=== PATIENT | female | born 1955 | race African-American/Black ===

== ENCOUNTER 2020-09-08 08:57 | Inpatient (IN) | payer OTHER ==
[2020-09-08] MEDS ORDERED: Ondansetron ODT 4 MG TAB ONE ×2 (09:14→17:08)
--- NOTE | 2020-09-08 09:38 | RAD ---
Chest one view HISTORY: Chest pain. Nausea vomiting. COMPARISON: 02/28/2018. FINDINGS: Cardiac silhouette is magnified by projection. Pulmonary vasculature are unremarkable. Mediastinum is midline with aortic calcification. Slight elevation right hemidiaphragm unchanged in appearance. No lobar consolidation or evidence of p neumothorax. IMPRESSION : No acute abnormalities are demonstrated.
[2020-09-08 09:53] LABS: #Lymphocytes 1.2 thou/uL (1.20-3.40); #Monocytes 0.4 thou/uL (0.11-0.59); #Neutrophils 8.9 thou/uL (1.40-6.50); %Basophils 0.5 % (0.0-1.0); %Eosinophils 0.3 % (0.0-10.0); %Lymphocytes 11.4 % (21.0-51.0); %Monocytes 3.6 % (0.0-10.0); %Neutrophils 84.3 % (42.0-75.0); Mean Corpuscular HGB CONC 32.2 g/dL (32.0-36.0); Mean Corpuscular Hemoglobin 30.7 pg (27.0-31.0); Mean Corpuscular Volume 95.4 fL (78.0-98.0); Mean Platelet Volume 7.4 fL (7.4-10.4); Platelet Count 415 thou/uL (130-400); RBC Distribution Width 11.9 % (11.5-14.5); Red Blood Cell (RBC) Count 4.56 mill/uL (4.20-5.40); White Blood Cell (WBC) Count 10.5 thou/uL (4.8-10.8)
[2020-09-08 10:16] LABS: ALT (SGPT) 17 U/L (8-55); AST (SGOT) 18 U/L (5-34); Alkaline Phosphatase 116 U/L (40-110); Anion Gap 16 mmol/L (10-20); BUN (Urea Nitrogen) 10 mg/dL (9.8-20.1); Bilirubin, Total 0.4 mg/dL (0.2-1.2); Calc. Creatinine Clearance 0 mL/min (70-130); Calcium 9.2 mg/dL (7.8-10.44); Carbon Dioxide 25 mmol/L (23-31); Chloride 99 mmol/L (98-107); Globulin 3.4 g/dL (2.4-3.5); Glucose 137 mg/dL (80-115); Lipase 16 U/L (8-78); Magnesium 1.8 mg/dL (1.6-2.6); Potassium 3.2 mmol/L (3.5-5.1); Protein, Total 7.4 g/dL (6.0-8.3); Sodium 137 mmol/L (136-145)
[2020-09-08 10:34] LABS: Bilirubin Negative (Negative); Blood, Urine Negative (Negative); Clarity Clear (Clear); Glucose, Urine (Dipstick) Normal (Negative); Ketone, Urine 10 mg/dL (Negative); Leukocyte Negative Leu/uL (Negative); Nitrite Negative (Negative); Protein, Urine (Dipstick) 30 mg/dL (Neg-Trace); RBC/HPF None Seen HPF (0-3); Specific Gravity, Urine 1.019 (1.002-1.036); Squamous Epithelial 0-3 HPF (0-3); Urobilinogen Normal mg/dL (Less than 2); pH, Urine 8.5 (5.0-9.0)
[2020-09-08 10:35] LABS: CKMB 1.5 ng/mL (0-6.6)
[2020-09-08 10:37] LABS: Bacteria/HPF 1+ HPF (None Seen)
--- NOTE | 2020-09-08 10:42 | CT ---
CT abdomen and pelvis with IV contrast HISTORY: Abdomen pain. Nausea vomiting. FINDINGS: The lung bases are clear. Very small hiatal hernia. A rounded 1.4 cm heterogeneous isodense nodule involves the lateral limb of the left adrenal gland. T here is subtle stranding in the retroperitoneal fat immediately surrounding the left adrenal gland. Minimal stranding extending inferiorly into the retroperitoneum. Nonspecific, nonenlarged retroperito huan lymph nodes. The kidneys are unremarkable. No evidence of bowel obstruction. Appendix not inflamed. Urinary bladder has normal appearance. IMPRESSION : No evidence of bowel obstruction or other enteric abnormality. Subtle abnormality of the left adrenal gland and small left adrenal nodule as detailed above. If infl ammation is a component, the patient's symptoms may be related to hormonal release. Please consider follow-up CT adrenal glands, without and with IV contrast, in approximately 3 months to evaluate for resolution and better characterization.
[2020-09-08] MEDS ORDERED: cefTRIAXone\\ROCEPHIN 2 GM VIAL ONE (11:28)
[2020-09-08] MEDS ORDERED: Aspirin Chewable 81 MG TAB ONE (11:28)
[2020-09-08] MEDS ORDERED: Potassium Chloride 20 MEQ TAB ONE (11:28)
[2020-09-08] MEDS ORDERED: Metoclopramide HCl 10 MG/2 ML VIAL ONE (11:28)
[2020-09-08] MEDS ORDERED: Iopamidol-370 76% 500 ML 1 ML ONE (11:57)
[2020-09-08 12:54] LABS: Lactic Acid 2.4 mmol/L (0.5-2.2)
[2020-09-08 16:33] LABS: Troponin I 0.281 ng/mL (< 0.028)
[2020-09-08] MEDS ORDERED: cloNIDine 0.1 MG TAB PO PRN (16:57)
[2020-09-08] MEDS ORDERED: Ondansetron ODT 4 MG TAB PO PRN (16:57)
[2020-09-08] MEDS ORDERED: Promethazine HCl 25 MG in Sodium Chloride 0.9% 50 ML IVPB PRN (16:57)
[2020-09-08] MEDS ORDERED: Acetaminophen 325 MG TAB PO PRN (16:57)
[2020-09-08] MEDS ORDERED: Ondansetron PF 4 MG/2 ML Vial IVP PRN (16:57)
[2020-09-08 17:44] LABS: SARS-CoV-2 MS2 Positive; SARS-CoV-2 N Gene Negative; SARS-CoV-2 S Gene Negative; SARS-CoV-2 by NAA Not Detected (NotDetected); SARS-CoV-2 orf1ab Negative
--- NOTE | 2020-09-08 18:35 | HP ---
PRIMARY CARE PHYSICIAN: Holly Tran PA-C. CHIEF COMPLAINT: "I suddenly felt sick and I had been vomiting since last night." HISTORY OF PRESENT ILLNESS: Ms. Buck is a very pleasant 65-year-old female, who has a history of hypertension and high cholesterol. She says she was feeling fine until about 12:30 a.m. this morning. She had gone to bed and then just suddenly got up and started feeling nauseated and started vomiting. Her daughter who is at the bedside says she has vomited at least 12 times. She denies emphatically that she has any abdominal pain. She denies any fever, but says she has had some chills. Due to the continuing vomiting, she came to the ER for evaluation. She denies any diarrhea. She denies any sick contacts, but she did eat something different from everyone else. She had eaten some beef enchiladas from a local [employer] restaurant and is not sure if that caused the symptoms. She says she had eaten there at around noon about 12 hours before the symptoms started and about 5 in the evening, she started to feel a little bit sick. She does admit to having food poisoning a couple of years ago with very similar symptoms. She denies any new medications or any change in medications. REVIEW OF SYSTEMS: All systems were reviewed and are negative except for that mentioned in the history of present illness. PAST MEDICAL HISTORY: Significant for hypertension and hypercholesterolemia. PAST SURGICAL HISTORY: She had a hysterectomy about 40 years ago. ALLERGIES: NO KNOWN DRUG ALLERGIES. SOCIAL HISTORY: She is . She has 2 children. She is a nonsmoker and nondrinker. Denies any drug use. Her daughter, Holly Buck, is the surrogate decision maker and she would want to be a full code. FAMILY HISTORY: Significant for breast cancer in the mother and prostate cancer in her father. CURRENT MEDICATIONS: Include: 1. Hydrochlorothiazide 25 mg daily. 2. Lisinopril 10 mg a day. PHYSICAL EXAMINATION: GENERAL: She is awake, alert, and oriented. However, she does appear to be in some distress from vomiting. VITAL SIGNS: Her blood pressure was ranging from 137/85 to 176/89, heart rate 102, respiratory rate is 18, temperature is 99.3, and O2 saturation is 100% on room air. HEENT: Pupils are equal, round, and reactive. Extraocular muscles are intact. Her sclerae anicteric. Throat, no erythema, no exudates. NECK: No adenopathy. No bruits. LUNGS: Clear to auscultation. There is no wheezing, no rales, no rhonchi. CARDIOVASCULAR: She has a normal S1 and S2. No S3 or S4. Heart rate is regular, but tachycardic. ABDOMEN: Soft. It is nontender. There is no rebound, no guarding. Bowel sounds are present. EXTREMITIES: There is no clubbing or cyanosis. No edema. No calf tenderness. No joint effusions. She has palpable dorsalis pedis pulses bilaterally. NEUROLOGIC: Her muscle strength is 5/5 in both her upper and lower extremities. SKIN AND INTEGUMENT: Unremarkable. LABS AND IMAGING: She had a CT scan of the abdomen and pelvis in which there was a subtle abnormality in the left adrenal gland, which could be related to a nodule. Recommending followup CT in 3 months. Otherwise, it was unremarkable and she had a chest x-ray which did not show any abnormalities. The heart size is normal. There is no infiltrate or effusion. This is by my reading. On her urine, there was 1+ bacteria and 4 to 6 white blood cells. Her chemistry, sodium is 137, potassium 3.2, chloride is 99, CO2 is 25, BUN of 10, creatinine 0.8, glucose is 137. Lactic acid is 3.0. Alkaline phosphatase is 116. Troponin is 0.035. White blood cell count is 10.5, hemoglobin 14, hematocrit is 43.5, and platelet count is 415. ASSESSMENT: 1. This is a very pleasant 65-year-old female, who presents with intractable vomiting and nausea. No abdominal pain. No significant abnormalities on CT scan. I suspect that her symptoms could be related to a gastroenteritis, either bacterial or viral. It is also noted that she has an elevated troponin. I suspect this is from the strain of all of the vomiting and possibly her blood pressure. However, she will be placed in observation. We will place her on IV fluid resuscitation, antiemetics, and we will also trend her cardiac enzymes. Should her troponin level increase, then we will get a cardiology evaluation. Otherwise, hopefully her symptoms will homer and anticipate discharge home tomorrow. 2. Hypertension. We will place her on p.r.n. medications for her blood pressure. Job ID: [id number]
[2020-09-09 05:21] LABS: #Basophils 0.1 thou/uL (0.0-0.2); #Lymphocytes 3.1 thou/uL (1.20-3.40); #Monocytes 1.6 thou/uL (0.11-0.59); #Neutrophils 12.3 thou/uL (1.40-6.50); %Basophils 0.3 % (0.0-1.0); %Eosinophils 0.1 % (0.0-10.0); %Lymphocytes 18.2 % (21.0-51.0); %Monocytes 9.3 % (0.0-10.0); Hemoglobin 13.9 g/dL (12.0-16.0); Mean Corpuscular HGB CONC 32.7 g/dL (32.0-36.0); Mean Corpuscular Hemoglobin 31.2 pg (27.0-31.0); Mean Corpuscular Volume 95.5 fL (78.0-98.0); Mean Platelet Volume 7.6 fL (7.4-10.4); Platelet Count 399 thou/uL (130-400); RBC Distribution Width 12.2 % (11.5-14.5); Red Blood Cell (RBC) Count 4.46 mill/uL (4.20-5.40); White Blood Cell (WBC) Count 17.1 thou/uL (4.8-10.8)
[2020-09-09 05:37] LABS: Anion Gap 16 mmol/L (10-20); BUN (Urea Nitrogen) 7 mg/dL (9.8-20.1); Calc. Creatinine Clearance 0 mL/min (70-130); Calcium 8.8 mg/dL (7.8-10.44); Carbon Dioxide 22 mmol/L (23-31); Chloride 102 mmol/L (98-107); Glucose 132 mg/dL (80-115); Potassium 3.3 mmol/L (3.5-5.1); Sodium 137 mmol/L (136-145)
[2020-09-09] MEDS ORDERED: Enoxaparin Sodium 40 MG/0.4 ML SYRINGE ONE (08:38)
[2020-09-09] MEDS ORDERED: Ondansetron PF 4 MG/2 ML Vial ONE (08:38)
[2020-09-09] MEDS ORDERED: Enoxaparin Sodium 40 MG/0.4 ML SYRINGE SC SCH ×2 (09:00→15:00)
[2020-09-09] MEDS ORDERED: Potassium Chloride 10 MEQ in Premix Bag 1 BAG IVPB SCH (10:00)
[2020-09-09] MEDS ORDERED: Acetaminophen 500 MG TAB ONE (11:06)
[2020-09-09] MEDS ORDERED: Sodium Chloride 0.9% 500 ML IV SCH (12:15)
[2020-09-09] MEDS ORDERED: Nitroglycerin 2% Ointment 1 INCH/1 GM Packet TOP SCH (12:15)
[2020-09-09] MEDS ORDERED: Lisinopril/Hydrochlorothiazide 20/25 mg Tablet PO SCH (12:15)
--- NOTE | 2020-09-09 12:19 | PDOC.HOSPP ---
- Subjective Encounter Date: 09/09/20 Encounter Time: 12:17 Subjective: Patient seen and examined. No new complaints. No overnight events. Patient says she feels better and wants to go home. Tolerating po liquid intake. Denies abdominal pain, N/V/D. Denies dysuria or hematuria. Denies any chest pain, heart palpitations, SOB, light headedness. Denies fever, chills. Discussed elevated troponin and WBC count. Patient had no further questions. - Objective Result Diagrams: 09/09/20 04:47 09/09/20 04:47 Hospitalist ROS - Review of Systems All other systems reviewed; all pertinent +/- noted in HPI/Subj - Medication Medications: Active Medications Generic Name Dose Route Start Last Admin Trade Name Freq PRN Reason Stop Dose Admin Enoxaparin Sodium 40 mg 09/09/20 09:00 09/09/20 08:43 Enoxaparin Sodium 40 Mg/0.4 Ml Syringe SC 40 mg 0900 GERARD Administration Ondansetron HCl 4 mg 09/08/20 16:57 09/09/20 08:43 Ondansetron Pf 4 Mg/2 Ml Vial IVP 4 mg Q6H PRN Administration Nausea/Vomiting Ondansetron HCl 4 mg 09/08/20 16:57 09/08/20 17:10 Ondansetron Odt 4 Mg Tab PO 4 mg Q6H PRN Administration Nausea/Vomiting - Exam General Appearance: NAD, awake alert. negative: ill appearing Eye: anicteric sclera ENT: normocephalic atraumatic Heart: RRR, no gallops, no rubs, normal peripheral pulses, III/IV Respiratory: CTAB, no wheezes, no rales, no ronchi, normal chest expansion, no tachypnea Gastrointestinal: soft, non-tender, non-distended, normal bowel sounds, no guarding, no rigidity Gastrointestinal - other findings: no CVAT Extremities: no edema Neurological: no focal deficits Psychiatric: normal affect, A&O x 3 Hosp A/P (1) UTI (urinary tract infection) Status: Acute (2) Sepsis Code(s): A41.9 - SEPSIS, UNSPECIFIED ORGANISM Status: Acute (3) NSTEMI (non-ST elevated myocardial infarction) Code(s): I21.4 - NON-ST ELEVATION (NSTEMI) MYOCARDIAL INFARCTION Status: Acute (4) Elevated troponin Code(s): R77.8 - OTHER SPECIFIED ABNORMALITIES OF PLASMA PROTEINS Status: Acute (5) Hypokalemia Code(s): E87.6 - HYPOKALEMIA Status: Acute (6) Intractable nausea and vomiting Code(s): R11.2 - NAUSEA WITH VOMITING, UNSPECIFIED Status: Acute (7) Adrenal nodule Code(s): E27.8 - OTHER SPECIFIED DISORDERS OF ADRENAL GLAND Status: Acute (8) Hypertension Code(s): I10 - ESSENTIAL (PRIMARY) HYPERTENSION Status: Chronic (9) Hyperlipidemia Code(s): E78.5 - HYPERLIPIDEMIA, UNSPECIFIED Status: Chronic - Plan 65/F with PMH HTN/HLD presents for intractable nausea and vomiting. Admit to telemetry floor, observation status. Expected length of stay less than 2 midnights. Changed to inpatient status 09/09/20 #UTI UA 4-6 WBC, 1+ bacteria. Urine culture pending. Continue Rocephin. #Sepsis Likely related to problem 1. Patient originally presented tachycardic. Today she is tachycardic, WBCs 17.1, LA 2.4 We will give 500 ml normal saline bolus. Continue Rocephin. Recheck lactic acid in 4 hours. Check procalcitonin. #NSTEMI, Elevated troponin 0.035, 0.090, 0.281 Patient denies symptomatology. A: 3/6 murmur Heart score 5 Repeat stat EKG and troponin level. Order echocardiogram. Continue aspirin. Add statin and Nitropaste. Consider cardiology consult pending results above. Troponin 0.312, asymptomatic, no EKG changes NSTEMI, LMWH 1mg/kg, consult cardiology. #Hypokalemia Mild. K3.3, mag 1.8 Currently receiving 40 mEq IVPB Recheck level in a.m. #Intractable nausea and vomiting Resolved. Tolerating p.o. liquid intake. Continue advance diet. #Adrenal nodule Incidental finding on CT abdomen pelvis. Recommend follow-up noncontrast CT of adrenal glands if symptomatology could be linked to incidental finding. #Hypertension Currently hypertensive. Has not received home medications. We will restart home dose lisinopril HCTZ. We will add Nitropaste related to problem #3. #Hyperlipidemia Restart home dose atorvastatin. Check FLP. Lovenox for DVT prophylaxis. No GI prophylaxis. Discussed case with Dr. Quintana, attending physician.
[2020-09-09] MEDS ORDERED: Nitroglycerin 2% Ointment 1 INCH/1 GM Packet ONE (13:05)
[2020-09-09 13:10] LABS: Troponin I 0.312 ng/mL (< 0.028)
[2020-09-09 15:44] VITALS: BMI 26.1
--- NOTE | 2020-09-09 19:36 | CON ---
DATE OF CONSULTATION: REASON FOR CONSULTATION: Elevated troponin. PRIMARY RETAIL OFFICE MANAGER: None. HISTORY OF PRESENT ILLNESS: Ms. Buck is a 65-year-old woman, who has not been seen or evaluated by Cardiology in the past. She recently presented with overt nausea and vomiting. She states she ate [place] food recently and developed significant nausea and vomiting several hours afterward. She had persistent nausea and vomiting. No chest pain or pressure noted. She states after being hydrated and given the Zofran, her symptoms completely resolved. She appears to be comfortable without any issues or problems currently. Her EKG shows normal sinus rhythm with no significant ST-T wave changes suggesting ischemia or infarction. PAST MEDICAL HISTORY: Hypertension, hyperlipidemia, and hysterectomy. ALLERGIES: NONE. SOCIAL HISTORY: She is currently . Two children. No current tobacco or alcohol use. FAMILY HISTORY: Positive for breast cancer. HOME MEDICATIONS: Include hydrochlorothiazide and lisinopril. REVIEW OF SYSTEMS: A 10-point review of systems is reviewed and is as above, otherwise negative. PHYSICAL EXAMINATION: GENERAL: Patient is a pleasant woman, who is in no acute distress. The patient appears their stated age. VITAL SIGNS: Blood pressure 136/72, pulse 82, temperature 99. NEUROLOGIC: The patient is alert and oriented x3 with no focal neurologic deficits. HEENT: Sclerae without icterus. Mouth has moist mucous membranes with normal pallor. NECK: No JVD. Carotid upstroke brisk. No bruits bilaterally. LUNGS: Clear to auscultation with unlabored respirations. BACK: No scoliosis or kyphosis. CARDIAC: Regular rate and rhythm with normal S1 and S2. No S3 or S4 noted. No significant rubs, murmurs, thrills, or gallops noted throughout the precordium. PMI is not displaced. There is no parasternal heave. ABDOMEN: Soft, nontender, nondistended. No peritoneal signs present. No hepatosplenomegaly. No abnormal striae. EXTREMITIES: 2+ femoral and 2+ dorsalis pedis pulses. No cyanosis, clubbing, or edema. SKIN: No gross abnormalities. PERTINENT LABORATORY DATA: Hemoglobin 13.9, hematocrit 42.6, and platelet count 399. Creatinine 0.74. Peak troponin 0.3 with a CK-MB of 1.5. EKG as above. IMPRESSION: 1. Elevated troponin. 2. Persistent nausea and vomiting. 3. Hypertension. 4. Hyperlipidemia. RECOMMENDATIONS: Ms. Buck's current elevated troponin does not represent unstable angina. She had persistent nausea and vomiting for several hours. This is truly consistent with unstable angina. I would expect a much higher troponin. She does have risk factor for underlying coronary artery disease. Recommend a noninvasive stress study to assess for any areas of ischemia. Her LVEF is estimated at 60% to 65% with no significant wall motion abnormalities present. She has mild LVH. Job ID: [id number]
[2020-09-09] MEDS: Enoxaparin Sodium 80 MG/0.8 ML SYRINGE SC SCH (20:38)
[2020-09-09] MEDS: Nitroglycerin 2% Ointment 1 INCH/1 GM Packet TOP SCH ×2 (20:40→20:53)
[2020-09-10 04:43] LABS: #Basophils 0.1 thou/uL (0.0-0.2); #Eosinphils 0.1 thou/uL (0.0-0.7); #Lymphocytes 4.5 thou/uL (1.20-3.40); #Neutrophils 4.9 thou/uL (1.40-6.50); %Basophils 1.3 % (0.0-1.0); %Monocytes 9.6 % (0.0-10.0); Hemoglobin 14.1 g/dL (12.0-16.0); Mean Corpuscular Hemoglobin 31.7 pg (27.0-31.0); Mean Corpuscular Volume 95.8 fL (78.0-98.0); Mean Platelet Volume 7.4 fL (7.4-10.4); Platelet Count 370 thou/uL (130-400); Red Blood Cell (RBC) Count 4.45 mill/uL (4.20-5.40); White Blood Cell (WBC) Count 10.7 thou/uL (4.8-10.8)
[2020-09-10 05:02] LABS: Anion Gap 15 mmol/L (10-20); BUN (Urea Nitrogen) 7 mg/dL (9.8-20.1); Calc. Creatinine Clearance 89 mL/min (70-130); Calcium 8.8 mg/dL (7.8-10.44); Carbon Dioxide 25 mmol/L (23-31); Cardiac Risk 5.6 (Less than 4.5); Chloride 103 mmol/L (98-107); Cholesterol 140 mg/dl (< 200 Desired); Glucose 92 mg/dL (80-115); HDL Cholesterol 25 mg/dL (>60 Neg Risk); LDL Cholesterol, Calculated 93 mg/dL; Potassium 3.6 mmol/L (3.5-5.1); Sodium 139 mmol/L (136-145); Triglycerides 112 mg/dL (Less than 150)
[2020-09-10] MEDS: Enoxaparin Sodium 80 MG/0.8 ML SYRINGE SC SCH (07:59)
[2020-09-10] MEDS ORDERED: Lisinopril/Hydrochlorothiazide 20/25 mg Tablet PO SCH (09:00)
--- NOTE | 2020-09-10 11:42 | NM ---
Radionucleotide stress and rest myocardial perfusion scan with CT attenuation correction and SPECT im aging Left ventricular wall motion evaluation and ejection fraction HISTORY: Chest pain. FINDINGS: Heterogeneous uptake of radiotracer throughout the left ventricular myocardium. Some breast attenuation noted. No perfusion defect or reversibility. QGS analysis of gated SPECT images shows no focal wall motion abnormalities. Ejection fraction calcul ated at 81%. IMPRESSION : No evidence of ischemia. Normal LVEF.
[2020-09-10] MEDS ORDERED: ADENOSINE 60 MG/20 ML VIAL ONE (11:54)
[2020-09-10] MEDS ORDERED: cefTRIAXone\\ROCEPHIN 1 GM in Sodium Chloride 0.9% 100 ML IVPB SCH (12:00)
[2020-09-10 12:56] VITALS: BP 136/75; TEMP 99.4
[2020-09-10] MEDS: Nitroglycerin 2% Ointment 1 INCH/1 GM Packet TOP SCH (13:29)
--- NOTE | 2020-09-10 13:52 | PDOC.DS.DS ---
Provider - Provider Date of Admission: 09/09/20 11:55 Date of Discharge: 09/10/20 Admitting Provider: Dwight Brasher MD Consultations: Cardiology Primary Care Physician: JOSE ANTONIO Najera Course - Hospital Course Hospital Course: Patient is a very pleasant 65-year-old female who initially presented to the hospital with nausea vomiting. Appears that patient had some bad French food. She had mildly elevated troponins. She had a stress test and was evaluated by cardiology. Stress test was negative. She also had an echocardiogram which indicated an EF of 60 to 65%. Patient has been eating drinking feels well she will be discharged home to follow-up with her primary. Her electrolytes were replaced Resuscitation Status: 09/08/20 11:55 Resuscitation Status Routine Resuscitation Status: FULL: Full Resuscitation - Labs Lab Results: 09/10/20 04:08 09/10/20 04:08 Abnormal Lab Results - Last 48 hrs 09/08/20 15:45: Troponin I 0.281 H 09/09/20 04:47: Potassium 3.3 L, Carbon Dioxide 22 L, BUN 7 L 09/09/20 04:47: WBC 17.1 H, MCH 31.2 H, Lymphocytes % 18.2 L, Neutrophils # 12.3 H, Monocytes # 1.6 H 09/09/20 12:17: Troponin I 0.312 H* 09/10/20 04:08: BUN 7 L 09/10/20 04:08: MCH 31.7 H, Basophils % 1.3 H, Lymphocytes # 4.5 H, Monocytes # 1.0 H Microbiology - Entire Visit 09/08/20 10:15 Urine clean catch Urine Culture - Final - Physical Exam Vitals: Vital Signs (12 hours) Temp Pulse Resp BP Pulse Ox 09/10/20 12:00 99.4 F 83 16 136/75 100 09/10/20 11:42 88 09/10/20 08:00 95 09/10/20 07:57 98.2 F 88 16 129/72 98 09/10/20 03:22 98.6 F 80 18 137/73 97 Weight Weight 172 lb Physical Exam: The patient was seen and examined on the day of discharge. Problem - Discharge Plan Assessment: 1. Nausea vomiting resolved #2 mild elevated troponins most likely secondary to demand type II #3 hypokalemia resolved Plan - Discharge Medications Home Medications: Medication Instructions Recorded Confirmed Type Atorvastatin Calcium [Lipitor] 40 mg PO DAILY 09/09/20 09/09/20 History Lisinopril/Hydrochlorothiazide 1 tab PO DAILY 09/09/20 09/09/20 History [Lisinopril-Hctz 20-25 mg Tab] Allergies: No Known Allergies Allergy (Verified 09/09/20 11:35) - Discharge Instructions Discharge Instructions:: You Cardiac Stress Test was normal. left adrenal nodule need to follow up. Activity:: Activity as Tolerated Nourishment:: Heart Healthy Diet - Follow up Plan Referrals: Holly Tran PA [Primary Care Provider] - 7 Days (Please call to schedule a follow up appointment. Please let your PCP know you will need follow up images for the nodule found on your adrenal gland.) Chuckie Alfred MD [Active] - (Follow up with Dr. Alfred or his PA Mehnaz Mathis for continued cardiac concerns) Disposition: HOME Quality - Care Measures CORE MEASURES:: N/A
[2020-09-10] MEDS ORDERED: Atorvastatin Calcium 40 MG TAB PO SCH (21:00)
--- NOTE | 2020-09-11 07:14 | PQF ---
CLINICAL DOCUMENTATION CLARIFICATION FORM: Dear : Ciara Niño Date / Time: 09/11/20 4673 Please exercise your independent, professional judgment in responding to the clarification form. Clinical indicators are provided on the bottom of this form for your review In your clinical opinion based on clinical findings below, can you please identify the etiology of Nausea and Vomiting if due to: Please check appropriate box(es): [ x ] Viral Gastroenteritis [ ] Bacterial Gastroenteritis [ ] UTI [ ] Other diagnosis, please specify [ ] Unable to determine Physician Signature: Date/Time: For continuity of documentation, please document condition throughout progress notes and discharge summary. Thank You. To be completed by CDI/Coding staff for physician review: Present Clinical Indicators - Signs / Symptoms / Labs Results and Location in Medical Record [x] Urinalysis: pH 8.5, gravity 1.019, WBC 4-6, Bacteria 1+A Laboratory 09/08 [x] WBC 10.5; 17.1, Plt count 415; 399, Neutrophils 84.3; 72.0, Lactic acid 3.0 Laboratory 09/08-09/09 [x] Urine Culture: Mixed skin and enteric ty present Microbiology 09/08 [x] BP 164/80, Pulse 116, Resp 23, Temp 99.7 Vital signs 09/08 [x] UTI ED notes p10 09/08 [x] Nausea and Vomiting, Isuspect her symptoms could be related to gastroenteritis, either bacterial or viral H&P p2 09/08 Dr Brasher [x] Sepsis likely related to UTI HPN p3 09/09 [employer] COUNSELOR AT [employer] [x] Pt originally presented with tachycardic HPN p3 09/09 [employer] COUNSELOR [employer] Present Risk Factors Results and Location in Medical Record [x] 65 year-old Female H&P p1 09/08 Dr Brasher [x] HTN H&P p1 09/08 Dr Brasher [x] UTI ED notes p10 09/08 Present Treatments Results and Location in Medical Record [x] IVF NS 1L NOV 04 [x] IV Zofran 4 mg NOV 04 [x] IV Ceftriaxone 1 gm NOV 04 [x] Reglan 10 mg oral NOV 04 CDS/Supervisor Publications Signature: Chelsea Opalmilagros Jaime Phone #: [phone] Date/Time: 09/11/20 0713 This is a permanent part of the Medical Record [facility]
--- NOTE | 2020-09-11 07:15 | PQF ---
CLINICAL DOCUMENTATION CLARIFICATION FORM: Dear : Ciara Niño Date / Time: 09/11/20 0714 Please exercise your independent, professional judgment in responding to the clarification form. Clinical indicators are provided on the bottom of this form for your revie Please check appropriate box(es): [ ] Type 1 NH (NSTEMI) [ ] Type 2 NH (T2MI) secondary to Infection [ x ] Demand ischemia without NH [ ] Other diagnosis, please specify [ ] Unable to determine Physician Signature: Date/Time: For continuity of documentation, please document condition throughout progress notes and discharge summary. Thank You. To be completed by CDI/Coding staff for physician review: Present Clinical Indicators - Signs / Symptoms / Labs Results and Location in Medical Record [x] Troponin 0.035; 0.090; 0.281; 0.312 Laboratory 09/08-09/09 [x] Urinalysis: pH 8.5, gravity 1.019, WBC 4-6, Bacteria 1+A Laboratory 09/08 [x] BP 164/80, Pulse 116, Resp 23, Temp 99.7 Vital signs 09/08 [x] UTI ED notes p10 09/08 [x] Presented with Nausea and vomiting H&P p2 09/08 Dr rBasher [x] Elevated troponin HPN p3 09/09 [employer] ROOF TRUSS BUILDER [x] Pt originally presented with tachycardic HPN p3 09/09 [employer] ROOF TRUSS BUILDER [x] NSTEMI HPN p3 09/09 [employer] ROOF TRUSS BUILDER [x] Mild elevated troponin most likely secondary to demand type II DS p3 09/10 Dr Pacheco [x] EKG: no acute findings for ischemia ED Notes 09/08 [x] This is truly consistent with unstable angina Consult 09/09 Present Risk Factors Results and Location in Medical Record [x] 65 year-old Female H&P p1 09/08 Dr Brasher [x] HTN H&P p1 09/08 Dr Brasher [x] Hypercholesterol H&P p1 09/08 Dr Brasher [x] HLD ED Notes 09/08 Present Treatments Results and Location in Medical Record [x] IVF NS 1L NOV 04 [x] Nitro Bbid 2% Ointment 1 inch NOV 04 [x] IV Ceftriaxone 1 gm NOV 04 [x] Cardiology Consult Consult 09/10 [x] Aspirin 81mg Oral NOV 04 [x] Lovonex 40mg Subcu NOV 04 CDS/Ruffler Signature: Chelsea Jaime Phone #: [phone] Date/Time: 09/11/20 4028 This is a permanent part of the Medical Record [facility]
--- NOTE | 2020-09-11 07:16 | PQF ---
CLINICAL DOCUMENTATION CLARIFICATION FORM: Dear : Ciara Niño Date / Time: 09/11/20714 Please exercise your independent, professional judgment in responding to the clarification form. Clinical indicators are provided on the bottom of this form for your review Please check appropriate box(es): [ ] Sepsis due to UTI [ ] Localized infection without sepsis [x ] Other diagnosis, please specify:___pt was having diarrhea and was dehydrated no sepsis [ ] Unable to determine Physician Signature: Date/Time: For continuity of documentation, please document condition throughout progress notes and discharge summary. Thank You To be completed by CDI/Coding staff for physician review: Present Clinical Indicators - Signs / Symptoms / Labs Results and Location in Medical Record [x] Urinalysis: pH 8.5, gravity 1.019, WBC 4-6, Bacteria 1+A Laboratory 09/08 [x] WBC 10.5; 17.1, Plt count 415; 399, Neutrophils 84.3; 72.0, Lactic acid 3.0 Laboratory 09/08-09/09 [x] Urine Culture: Mixed skin and enteric ty present Microbiology 09/08 [x] BP 164/80, Pulse 116, Resp 23, Temp 99.7 Vital signs 09/08 [x] UTI ED notes p10 09/08 [x] Sepsis likely related to UTI HPN p3 09/09 [employer] ADOPTION COUNSELOR [x] Pt originally presented with tachycardic HPN p3 09/09 [employer] ADOPTION COUNSELOR Present Risk Factors Results and Location in Medical Record [x] UTI ED notes p10 09/08 [x] 65 year-old Female H&P p1 / Dr Brasher [x] HTN H&P p1 09/08 Dr Brasher Present Treatments Results and Location in Medical Record [x] IVF NS 1L NOV 04 [x] IV Ceftriaxone 1 gm NOV 04 [x] Check procalcitonin HPN p3 09/09 [employer] ADOPTION COUNSELOR CDS/Master Sonar Technician Signature: Chelsea Saraviacarrie Phone #: [phone] Date/Time: 09/11/20714 This is a permanent part of the Medical Record [facility]
== END 2020-09-10 14:02 | disposition home or self-care (01) | DRG 690 ==
LOC: ERS 08:57 → INTOOBSV 11:55 → ERHOLD 11:55 → OBSVTOIN 09-09 11:55 → 2NO 09-09 14:30
PROVIDERS: ADMIT Internal Medicine; ATTEND Internal Medicine
DX: N39.0 Urinary tract infection, site not specified (principal); R11.2 Nausea with vomiting, unspecified; Z20.822 Contact with and (suspected) exposure to COVID-19; E78.00 Pure hypercholesterolemia, unspecified; I10 Essential (primary) hypertension; E78.5 Hyperlipidemia, unspecified; E87.6 Hypokalemia; Z90.710 Acquired absence of both cervix and uterus; Z79.899 Other long term (current) drug therapy
CPT/HCPCS: 36415; 71045; 74177; 78452; 80048; 80053; 80061; 81003; 81015; 82553; 83605; 83690; 83735; 84145; 84484; 85025; 87086; 87635; 93005; 93010; 93017; 93306; 94760; 96365; 96375; A9500; G0378; J0153; J0696; J1650; J2405; J2765; J3480; Q0162; Q9967; U0003

== ENCOUNTER 2025-07-22 15:01 | Inpatient (IN) | payer MEDICARE ==
[~2025-07-22 15:01] MED LIST: Iopamidol-370 76% 500 ML MDV (1 ML CHARGE) ONE
[2025-07-22 15:55] LABS: Bacteria/HPF 2+ HPF (None Seen); CAUTI Indications for Culture Alt mental st,lethar; Glucose, Urine (Dipstick) Normal (Negative); Leukocyte 25 Leu/uL (Negative); Protein, Urine (Dipstick) 10 mg/dL (Neg-Trace); Specific Gravity, Urine 1.024 (1.002-1.036)
[2025-07-22 16:03] LABS: #Basophils 0.07 10x3/uL (0.0-0.2); #Eosinophils Less than 0.03 10x3/uL (0.0-0.7); #Monocytes 1.09 10x3/uL (0.11-0.59); #Neutrophils 4.96 10x3/uL (1.40-6.50); %Basophils 0.9 % (0.0-1.0); %Eosinophils 0.1 % (0.0-10.0); %Lymphocytes 24.9 % (21.0-51.0); %Monocytes 13.3 % (0.0-10.0); %Neutrophils 60.6 % (42.0-75.0); Hematocrit 42.5 % (36.0-47.0); Hemoglobin 14.1 g/dL (12.0-16.0); Mean Corpuscular Hemoglobin 29.4 pg (27.0-31.0); Mean Corpuscular Volume 88.7 fL (78.0-98.0); Platelet Count 451 10x3/uL (130-400); Red Blood Cell (RBC) Count 4.79 mill/uL (4.20-5.40); White Blood Cell (WBC) Count 8.19 10x3/uL (4.8-10.8)
[2025-07-22 16:11] LABS: Urine Culture Reflex No No
[2025-07-22 16:30] LABS: ALT (SGPT) 19 U/L (Less than 34); AST (SGOT) 26 U/L (11-34); Albumin 3.6 g/dL (3.1-4.5); Alkaline Phosphatase 97 U/L (40-110); Anion Gap 18 mmol/L (10-20); BUN (Urea Nitrogen) 15 mg/dL (9.8-20.1); Bilirubin, Total 0.2 mg/dL (0.3-1.2); Calc. Creatinine Clearance 0 mL/min (70-130); Calcium 9.8 mg/dL (7.8-10.44); Carbon Dioxide 22 mmol/L (23-31); Chloride 101 mmol/L (98-107); Globulin 4.3 g/dL (2.4-3.5); Glucose 148 mg/dL (80-115); Lipase 25 U/L (8-78); Potassium 3.5 mmol/L (3.5-5.1); Sodium 137 mmol/L (136-145)
[2025-07-22] MEDS ORDERED: cefTRIAXone (ROCEPHIN) 1 GM VIAL ONE (18:05)
[2025-07-22] MEDS ORDERED: Ondansetron PF 4 MG/2 ML Vial ONE (18:13)
[2025-07-22] MEDS ORDERED: Ciprofloxacin Lactate D5W 400 mg (200 mL) BAG ONE (20:15)
[2025-07-22] MEDS ORDERED: Bisacodyl 10 MG SUPP PR PRN (22:21)
[2025-07-22] MEDS ORDERED: Ondansetron PF 4 MG/2 ML Vial IVP PRN (22:21)
[2025-07-22] MEDS ORDERED: Guaifenesin DM 100-10/5 ML UDCUP PO PRN (22:21)
[2025-07-22] MEDS ORDERED: Melatonin 3 MG TAB PO PRN (22:21)
[2025-07-22] MEDS ORDERED: Acetaminophen 325 MG TAB PO PRN (22:21)
[2025-07-22] MEDS ORDERED: Senokot S 8.6-50 MG TAB PO PRN (22:21)
[2025-07-22] MEDS ORDERED: Magnesium 2 GM/50 ML(in water) 2 GM in Premix 1 BAG IVPB PRN (22:30)
[2025-07-22] MEDS ORDERED: Potassium Chloride 20 MEQ in Premix 1 BAG IVPB PRN (22:30)
[2025-07-22] MEDS ORDERED: Electrolyte Replacement Protocol 1 EACH FS SCH (22:30)
[2025-07-22] MEDS ORDERED: PHOS-NAK 1 PKT PACK PO PRN (22:30)
[2025-07-23 00:16] VITALS: BMI 30.6
[2025-07-23 05:04] LABS: #Basophils 0.06 10x3/uL (0.0-0.2); #Eosinophils 0.09 10x3/uL (0.0-0.7); #Monocytes 1.14 10x3/uL (0.11-0.59); #Neutrophils 4.40 10x3/uL (1.40-6.50); %Basophils 0.7 % (0.0-1.0); %Eosinophils 1.0 % (0.0-10.0); %Lymphocytes 35.0 % (21.0-51.0); %Monocytes 13.0 % (0.0-10.0); %Neutrophils 50.1 % (42.0-75.0); Hematocrit 36.6 % (36.0-47.0); Hemoglobin 12.0 g/dL (12.0-16.0); Mean Corpuscular Hemoglobin 29.8 pg (27.0-31.0); Mean Corpuscular Volume 90.8 fL (78.0-98.0); Platelet Count 352 10x3/uL (130-400); Red Blood Cell (RBC) Count 4.03 mill/uL (4.20-5.40); White Blood Cell (WBC) Count 8.79 10x3/uL (4.8-10.8)
[2025-07-23 05:23] LABS: Anion Gap 13 mmol/L (10-20); BUN (Urea Nitrogen) 8 mg/dL (9.8-20.1); Calc. Creatinine Clearance 96 mL/min (70-130); Calcium 8.4 mg/dL (7.8-10.44); Carbon Dioxide 26 mmol/L (23-31); Chloride 106 mmol/L (98-107); Glucose 97 mg/dL (80-115); Potassium 4.0 mmol/L (3.5-5.1); Sodium 141 mmol/L (136-145)
[2025-07-23] MEDS: Enoxaparin 40 MG (0.4 mL) SYRINGE SC SCH (09:34)
[2025-07-23] MEDS: Lisinopril 20 MG TAB PO SCH (09:34)
[2025-07-23] MEDS: cefTRIAXone\\ROCEPHIN 1 GM in Sodium Chloride 0.9% 100 ML IVPB SCH (17:28)
[2025-07-25] MEDS: Lisinopril 20 MG TAB PO SCH (09:54)
[2025-07-25 16:10] VITALS: BP 169/92; TEMP 98.4
== END 2025-07-25 17:25 | disposition home or self-care (01) | DRG 690 ==
LOC: ERS 15:01 → ERHOLD 19:00 → MSONC 07-23 00:12 → OBSVTOIN 07-23 13:14
PROVIDERS: ADMIT Family Medicine; ATTEND Internal Medicine
DX: N39.0 Urinary tract infection, site not specified (principal); E87.20 Acidosis, unspecified; I10 Essential (primary) hypertension; Z90.710 Acquired absence of both cervix and uterus; R00.0 Tachycardia, unspecified; E78.5 Hyperlipidemia, unspecified; B95.7 Other staphylococcus as the cause of diseases classified elsewhere
CPT/HCPCS: 36415; 36416; 74177; 80048; 80053; 81001; 83605; 83690; 83880; 84484; 85025; 87040; 87086; 87149; 87428; 93005; 96361; 96365; 96366; 96372; 96375; G0378; J0696; J0744; J1650; J2405; J7030; Q9967